=== PATIENT | male | born 1930 | race African-American/Black ===

== ENCOUNTER 2018-06-14 09:18 | Outpatient (CLI) | payer MEDICARE ==
--- NOTE | 2018-06-14 11:38 | RAD ---
CHEST TWO VIEWS: HISTORY: Abnormal chest sounds. COMPARISON: None. FINDINGS: There are sternotomy wires. There is atherosclerosis of the aorta. Normal cardiac silhouette. Pulm onary vessels and hilum are normal. Costophrenic angles are clear. Hyperinflation with chronic angel ges. No definite consolidation or mass. No pneumothorax. Mild loss of vertebral body height in the mid thoracic spine is presumed to be chronic. No pneumothorax. IMPRESSION: Increased interstitial opacities in the lung parenchyma, which are presumed to be chronic. POS: NICKI
== END 2018-06-14 09:19 | disposition home or self-care (01) ==
LOC: BICRAD 09:18
PROVIDERS: ATTEND Family Medicine
DX: R09.89 Other specified symptoms and signs involving the circulatory and respiratory systems (principal); R91.8 Other nonspecific abnormal finding of lung field
CPT/HCPCS: 71046